=== PATIENT | female | born 2005 | race Caucasian/White ===

== ENCOUNTER 2024-11-28 11:33 | Emergency (ER) | payer MEDICAID, OTHER ==
[~2024-11-28] VITALS: Ht 177.8 cm; Wt 54.0 kg
--- NOTE | 2024-11-28 12:08 | ED.PDOC ---
Musculoskeletal HPI Comments 19 year old female presents to the ED with chief complaint of left forearm pain. Patient reports that on 11/08/24, she had tripped and fell into her open advanced practice psychiatric nurse, puncturing her left forearm and bruising it. Patient relays that 8 days later, she visited and was placed on a 10 day course of Amoxicillin, which she finished 2 days ago. Patient states that there is no redness now, however, pain, bruising, and swelling is still present to the left forearm. Patient requests X-Rays of the arm and elbow. Patient denies any numbness, weakness, redness, fever, or chills. Chief Complaint: Upper Extremity Time Seen by MD: 11:55 Primary Care Provider: NORA Reviewed Notes: Nurses Notes, Medications, Allergies Allergies: Coded Allergies: NO KNOWN ALLERGIES (Unverified , 11/28/24) Information Source: Patient Mode of Arrival: Ambulatory Location: Left Extremity Location: Forearm Timing: Weeks Prehospital treatment: None Severity: Moderate Able to Move Extremity: Yes Bear Weight: Fully Pain: Moderate Mechanism: Blunt Trauma, Penetrating Trauma Circumstances: Fall Onset of Symptoms: After Trauma Symptoms: Swelling, Pain DVT Risk Factors: NONE Last Tetanus: UTD Past Medical History PAST MEDICAL HISTORY: Denies Surgical History: Denies all surgeries SNAPPER ON History: No Pertinent SNAPPER ON History Family History Family History: Reviewed,noncontributory to illness Social History Smoker: Non-Smoker Alcohol: Denies ETOH Use Drugs: Denies Drug Use Lives In: Home Constitutional: denies: chills, diaphoresis, fatigue, fever, malaise, sweats, weakness, others EENTM: denies: blurred vision, double vision, ear bleeding, ear discharge, ear drainage, ear pain, ear ringing, eye pain, eye redness, hearing loss, mouth pain, mouth swelling, nasal discharge, nose bleeding, nose congestion, nose pain, photophobia, tearing, throat pain, throat swelling, voice changes, others Respiratory: denies: cough, hemoptysis, orthopnea, SOB at rest, shortness of breath, SOB with excertion, stridor, wheezing, others Cardiovascular: denies: chest pain, dizzy spells, diaphoresis, Dyspnea on exertion, edema, irregular heart beat, left arm pain, lightheadedness, palpitations, PND, syncope, others Gastrointestinal: denies: abdomen distended, abdominal pain, blood streaked bowels, constipated, diarrhea, dysphagia, difficulty swallowing, hematemesis, melena, nausea, poor appetite, poor fluid intake, rectal bleeding, rectal pain, vomiting, others Genitourinary: denies: abnormal vagina bleeding, burning, dyspareunia, dysuria, flank pain, frequency, hematuria, incontinence, pain, , vagina discharge, urgency, others Neurological: denies: dizziness, fainting, headache, left sided numbness, left sided weakness, numbness, paresthesia, pre-existing deficit, right sided numbness, right sided weakness, seizure, speech problems, tingling, tremors, weakness, others Musculoskeletal: reports: others (Left forearm pain and swelling); denies: back pain, gout, joint pain, joint swelling, muscle pain, muscle stiffness, neck pain Integumetry: reports: bruises, laceration (Puncture wound to left forearm); denies: change in color, change in hair/nails, dryness, lesions, lumps, rash, wounds, others Allergic/Immunocompromised: denies: Difficulty Healing, Frequent Infections, Hives, Itching, others Hematologic/Lymphatic: denies: anemia, blood clots, easy bleeding, easy bruising, swollen glands, others Endocrine: denies: excessive hunger, excessive sweating, excessive thirst, excessive urination, flushing, intolerance to cold, intolerance to heat, unexplained weight gain, unexplained weight loss, others Psychiatric: denies: anxiety, bipolar disorder, depression, hopeless, panic d isorder, schizophrenia, sleepless, suicidal, others All Other Systems: Reviewed and Negative Physical Exam General Appearance: Moderate Distress, Normal HEENT: Normal ENT Inspection, PERRL/EOMI Neck: Full Range of Motion, Non-Tender, Normal, Normal Inspection Respiratory: Chest Non-Tender, Lungs Clear, No Accessory Muscle Use, No Respiratory Distress, Normal Breath Sounds Cardiovascular: No Edema, No JVD, No Murmur, No Gallop, Normal Peripheral Pulses, Regular Rate/Rhythm Breast Exam: Deferred Gastrointestinal: No Organomegaly, Non Tender, No Pulsatile Mass, Normal Bowel Sounds, Soft Genitalia: Deferred Pelvic: Deferred Rectal: Deferred Extremities: No calf tenderness, Normal capillary refill, Normal inspection, Normal range of motion, Non-tender, No pedal edema Musculoskeletal : Apperance: Normal Neurologic: Alert, telemarketing sales representative II-XII nml as Tested, No Motor Deficits, Normal Affect, Normal Mood, No Sensory Deficits Cerebellar Function: Normal Reflexes: Normal Skin: Bruises (Left elbow), Dry, Normal Color, Warm Peripheral Pulses: 3+ Radial (R), 3+ Radial (L) Lymphatic: No Adenopathy Was a procedure done? Was a procedure done?: No Differential Diagnosis EXT Differential Diagnosis: Cellulitis, Sprain, Strain X-Ray, Labs, Meds, VS Vital Signs Date Time Temp Pulse Resp B/P (MAP) Pulse Ox O2 Delivery O2 Flow Rate FiO2 11/28/24 12:20 96 17 100 Room Air* 0 21 11/28/24 12:20 98.6 96 17 127/88 (101) 100 98.6 11/28/24 11:44 99.1 92 20 154/77 (102) 100 Patient alert. Complaining of left forearm wound. X-ray of the elbow does not show any acute process. Vitals stable. X-ray of the forearm does not show any acute process. Elbow does have bruising. Was Mann wrap. Placed in his sling. Wound healing well. She was on antibiotics. Explained to the patient. Was told to follow up with her orthopedic. Was told to follow up with her primary care physician. Was told to come back if there is any problem. Lt Forearm XR: FINDINGS/IMPRESSION: : There is no evidence of acute fracture or dislocation. Soft tissues are unremarkable. Lt Elbow XR: FINDINGS/IMPRESSION: : Limited examination secondary to suboptimal lateral view. Subtle cortical irregularity at the medial proximal ulna seen on frontal view only most likely representing normal variant versus less likely nondisplaced fracture. Recommend correlation with point tenderness. Otherwise, no acute fracture or dislocation. Images Reviewed?: Images reviewed and evaluated by me Time of 1ST Reevaluation: 12:55 Reevaluation 1ST: Improved Patient Education/Counseling: Diagnosis, Treatment Family Education/Counseling: No Family Present Additional Information I reviewed the following notes from patient's past medical encounters: None The following tests were ordered, and results were reviewed by me: Additional Information was gathered from interviewing the following independent historians: None I reviewed and agreed with the following test results read by other providers: I discussed treatment and results with medical personnel. Departure 1 Departure Time of Disposition: 13:06 Impression: Primary Impression: Muscle strain Additional Impression: Visit for wound care Disposition: HOME / SELF CARE / HOMELESS Condition: Good Discharged With: Self Critical Care Note Critical Care Time?: No Stability Stability form required: No Heart Score Heart Score: Heart Score Response (Comments) Value History N/A 0 EKG N/A 0 Age N/A 0 Risk Factors N/A 0 Troponin N/A 0 Total 0 I personally scribed for JACKIE SANCHEZ MD ([email or web address]) on 11/28/24 at 12:08. Electronically submitted by Yair Laird ([email or web address]). I personally scribed for JACKIE SANCHEZ MD ([email or web address]) on 11/28/24 at 13:11. Electronically submitted by Yair Laird ([email or web address]). JACKIE SANCHEZ MD Nov 28, 2024 12:08
[2024-11-28 12:20] VITALS: BP 127/88; PULSE 96; RESP 17; TEMP 98.6; O2SAT 100
--- NOTE | 2024-11-28 12:49 | DVH ---
CLINICAL INDICATION: fall, pain TECHNIQUE: 2 XY L FOREARM XRAY Comparison: None FINDINGS/IMPRESSION: : There is no evidence of acute fracture or dislocation. Soft tissues are unremarkable.
--- NOTE | 2024-11-28 12:51 | DVH ---
CLINICAL INDICATION: Trauma, pain fall TECHNIQUE: XY L ELBOW 2 VIEW XRAY Comparison: None FINDINGS/IMPRESSION: : Limited examination secondary to suboptimal lateral view. Subtle cortical irregularity at the medial proximal ulna seen on frontal view only most likely repres enting normal variant versus less likely nondisplaced fracture. Recommend correlation with garrett moscoso. Otherwise, no acute fracture or dislocation.
== END 2024-11-28 13:30 | disposition home or self-care (01) ==
LOC: ER 11:33
DX: S56.912A Strain of unspecified muscles, fascia and tendons at forearm level, left arm, initial encounter (principal); W01.0XXA Fall on same level from slipping, tripping and stumbling without subsequent striking against object, initial encounter; Y93.89 Activity, other specified; Y92.89 Other specified places as the place of occurrence of the external cause; Y99.8 Other external cause status
CPT/HCPCS: 73070; 73090